=== PATIENT | female | born 1960 | race Caucasian/White ===

== ENCOUNTER 2016-12-27 07:22 | Day surgery (SDC) | payer BC ==
[~2016-12-27] VITALS: Ht 156.2 cm; Wt 58.9 kg
[~2016-12-27 07:22] MED LIST: ESTR1PAT45 TD; IBUP-1724 PO; LIDOCAINE 1% (10mg/ml) 2ml SDV INJ ONE; LR 1,000 ML IV SCH
--- OUTSIDE RECORDS SUMMARY | 2016-12-27 07:26 | XMS REPORT | Continuity of Care Document ---
Author Author [facility] Organization [facility] Address Unknown Phone Unavailable Support Name Relationship Address Phone MANGO HOBSON MD Caregiver [address] [place] [address] Unavailable INFECTION, CONTROL Caregiver [address] [place] [address] Unavailable EYAL ANGEL Next Of Kin [address] [place] [address] Insurance Providers Guarantor Aaron Angel Address [address] [place] [phone] Email [email or web address] Payer Channel [employer] Federal Policy Number [id number] Subscriber's Name Eyal Angel Relationship 01 Spouse Group Number [id number] Advance Directives Directive Response Recorded Date/Time Ordered Resuscitation Status Full Code 03/29/14 11:36am Problems Past Problems Medical Problem Onset Date 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 Unknown Medications Current Home Medications Medication Dose Units Route Directions Days Qty Instructions Start Date Estradiol (Vivelle-Dot 0.1 Mg) 1 Patch.bwk Patch.tdsw 1 Patch.bwk Transderm Twice A Week 07/02/12 Ibuprofen 200 Mg Tablet 2 Tab Oral Every 4 Hours as needed for Pain 07/24/16 Social History Social History Problem Response Recorded Date/Time Onset Date Status Chewing Tobacco Status No 03/28/2014 11:00am Not Applicable Not Applicable Hx Substance Use No 03/28/2014 11:00am Not Applicable Not Applicable Hx Alcohol Use No 03/28/2014 11:00am Not Applicable Not Applicable Has the pt used tobacco in the last 12 months No 03/28/2014 11:00am Not Applicable Not Applicable Query Response Start Date Stop Date Smoking Status Former smoker Hospital Discharge Instructions Current inpatient/outpatient. Discharge instructions are currently unavailable. Plan of Care Current inpatient/outpatient. The plan of care is currently unavailable Functional Status No functional status results. Allergies, Adverse Reactions, Alerts Allergen Type Severity Reaction Status Last Updated hydrocodone bit Allergy Unknown HIVES AND ITCHING Active 03/29/14 Penicillin Allergy Unknown HIVES Active 03/29/14 Sulfa (Sulfonamide Antibiotics) Allergy Unknown Active 03/29/14 Codeine Allergy Unknown DELIRIUM Active 03/29/14 Banana Allergy Unknown LIPS TINGLE Active 03/29/14 Latex Allergy Unknown LATEX SENSITIVE - LIPS GET "TINGLY" Active 03/29/14 Kiwi Allergy Unknown LIPS TINGLE Active 03/29/14 Avocado Allergy Unknown LIPS TINGLE Active 03/29/14 Immunizations Query Response on File Recorded Date/Time Hx Influenza Vaccination Y 201203/28/14 11:00am Hx Pneumococcal Vaccination No 03/28/14 11:00am Hx Influenza Vaccination Y 201203/28/14 11:00am Vital Signs Acute Vital Signs Vital Response Date/Time Temperature (Fahrenheit) 97.8 deg F (96.8 - 99.1) 07/24/2016 1:58pm Temperature (Calculated Celsius) 36.33824 degrees C (36.0 - 37.3) 07/24/2016 1:58pm Pulse Rate (adult) 60 bpm (60 - 100) 07/24/2016 1:58pm Respiratory Rate 20 breaths/min (10 - 20) 07/24/2016 1:58pm O2 Sat by Pulse Oximetry 96 % (90 - 100) 07/24/2016 1:58pm Blood Pressure 128/80 mm Hg 07/24/2016 1:58pm Height (Feet) 5 feet 07/24/2016 1:20pm Height (Inches) 1.00 inches 07/24/2016 1:20pm Weight (Kilograms) 61.700 kg 07/24/2016 1:20pm Body Mass Index (BMI) 25.0 07/24/2016 1:20pm Results Laboratory Results Test Name Result Units Flags Reference Collection Date/Time Result Date/ Time Comments Alanine Aminotransferase (ALT/SGPT) 30 U/L 9-52 07/24/2016 3:14pm 07/24 3:32pm Procedures No known history of procedures. Encounters Encounter Location Arrival/Admit Date Discharge/Depart Date Attending Provider Registered Referred [facility] 07/24/16 1:27pm INFECTION, CONTROL Departed Emergency Room [facility] 07/24/16 1:18pm 07/24/16 1: 58pm WARREN POON DO
--- OUTSIDE RECORDS SUMMARY | 2016-12-27 07:26 | XMS REPORT | Continuity of Care Document ---
Author Author [facility] Organization [facility] Address Unknown Phone Unavailable Allergies Active Description Code Type Severity Reaction Onset Reported/Identified Relationship to Patient Clinical Status Yes Banana Miscellaneous Allergy N/A hives, swelling /hives, swelling 06/17/2013 Yes codeine Drug Allergy N/A HIVES 06/17/2013 Yes kiwi Miscellaneous Allergy N/A hives, swelling /hives, swelling 06/17/2013 Yes latex Drug Allergy N/A latex sensitive-hives, swelling 06/17/2013 Yes No Known Food Allergies Food Allergy N/A N/A 06/17/2013 Yes Penicillins Drug Allergy N/A HIVES 06/17/2013 Yes Lortab Drug Allergy N/A nausea vomiting 06/22/2013 Medications Problems Date Dx Coded Attending Type Code Diagnosis Diagnosed By 06/17/2013 Jose Guy MD Final 278.01 MORBID OBESITY 06/17/2013 Jose Guy MD Final V72.63 PRE-PX LABORATORY EXAM 06/22/2013 Jose Guy MD Final 278.01 MORBID OBESITY 06/22/2013 Jose Guy MD Final 285.1 ACUTE POSTHEMOR ANEMIA 06/22/2013 Jose Guy MD Final 553.3 DIAPHRAGMATIC HERNIA 06/22/2013 Jose Guy MD Final V85.37 BMI 37.0-37.9 ADULT Procedures Code Description Performed By Performed On 43.82 Jose Guy MD 06/22/2013 45.13 SM BOWEL ENDOSCOPY NEC Jose Guy MD 06/22/2013 53.71 LAPSCP DH REP ABD APPR Jose Guy MD 06/22/2013 Results Encounters ACCT No. Visit Date/Time Discharge Status Pt. Type Provider Facility Loc./Unit Complaint [id number] 06/22/2013 07:51:00 2012 15:45:00 DIS Inpatient Jose Guy MD [facility] F8SE [id number] 06/17/2013 14:52:00 2012 23:59:59 CLS Outpatient Brooks ARREOLA, Jose Browne [facility] on [facility]
--- OUTSIDE RECORDS SUMMARY | 2016-12-27 07:26 | XMS REPORT ---
Author Author [facility], [facility] - Organization Unknown Address Unknown Phone Unavailable Allergies, Adverse Reactions, Alerts * Lortab causes nausea & vomiting and nausea. * latex causes latex sensitive-hives,swelling. * kiwi (as Food allergen) causes hives, swelling. * kiwi causes hives, swelling. * Banana (as Food allergen) causes hives, swelling. * Banana causes hives, swelling. * codeine causes HIVES. * Penicillins causes HIVES. * No IV Contrast Allergy. Problems * Altered Bowel Function* Status:Active. * Morbid Obesity* Status:Active. * Pain* Status:Active. * Peripheral Tissue Perfusion Impairment* Status:Active. * Skin Integrity Impairment* Status:Active. Procedures No relevant procedures performed. Medication It is the responsibility of the patient or patient patient care representative to confirm the list of medications with either the patient's personal care provider or the patient's follow-up care provider to ensure the patient has an appropriate list of medications to take at home. Discharge medications* oxyCODONE 5 mg/5 mL Solution, Ordered By: Tracie Ortega Directions: 7.5 mL oral Q3H PRN _ * estradiol (Vivelle-Dot) 0.1 mg/24 hour Patch Semiweekly, Ordered By: Tracie Ortega Directions: 1 patch transdermal weekly * MULTI VITAIN HMR ONE TABLET ORAL TWICE A DAY LAST DOSE 06/20/13 * esomeprazole magnesium (NexIUM Packet) [address] for susp in Packet, Ordered By: Tracie Ortega Directions: 1 PO daily * ondansetron HCl (Zofran) 4 mg Tablet, Ordered By: Tracie Ortega Directions: 1 tablet oral every six hours PRN nausea or vomiting Stopped medications* acetaminophen (Tylenol) 325 mg Tablet Directions: 2 tablet oral daily PRN pain * calcium carbonate-vitamin D3 (Calcium+D) 500 mg calcium (1,250 mg)-200 unit Tablet Directions: 1 tablet oral daily Results LAB--BEDSIDE TESTING from 06/22/2013 8:09 AMGlucose NPT 74 mg/dL (70-100 mg/dL) LAB--BEDSIDE TESTING from 06/22/2013 6:44 PMGlucose NPT 184 mg/dL H (70-100 mg/ dL) LAB--BEDSIDE TESTING from 06/23/2013 1:27 AMGlucose NPT 204 mg/dL H (70-100 mg/ dL) LAB--BEDSIDE TESTING from 06/23/2013 6:59 AMGlucose NPT 189 mg/dL H (70-100 mg/ dL) LAB--BEDSIDE TESTING from 06/23/2013 11:57 AMGlucose NPT 198 mg/dL H (70-100 mg/ dL) LAB--BEDSIDE TESTING from 06/23/2013 6:13 PMGlucose NPT 159 mg/dL H (70-100 mg/ dL) LAB--BEDSIDE TESTING from 06/24/2013 12:22 AMGlucose NPT 126 mg/dL H (70-100 mg/ dL) LAB--BEDSIDE TESTING from 06/24/2013 5:46 AMGlucose NPT 128 mg/dL H (70-100 mg/ dL) LAB--BEDSIDE TESTING from 06/24/2013 11:51 AMGlucose NPT 97 mg/dL (70-100 mg/dL) LAB--BLOOD BANK from 06/22/2013 8:33 AMABO and Rh O POS Antibody Screen (Indirect [place]) NEG LAB--CHEMISTRY from 06/23/2013 6:01 AMAnion Gap 6 (3-20 ) BUN 9 mg/dL (4-20 mg/dL) Calcium 8.4 mg/dL L (8.6-10.0 mg/dL) Chloride 107 mEq/L (99-109 mEq/L) CO2 20 mEq/L L (22-32 mEq/L) Creatinine 0.75 mg/dL (0.44-1.03 mg/dL) eGFR >60 (>60- ) Glucose 204 mg/dL H (70-100 mg/dL) Potassium 5.1 mEq/L (3.6-5.1 mEq/L) Sodium 133 mEq/L L (136-144 mEq/L) LAB--CHEMISTRY from 06/24/2013 5:47 AMAnion Gap 3 (3-20 ) BUN 2 mg/dL L (4-20 mg/dL) Calcium 8.2 mg/dL L (8.6-10.0 mg/dL) Chloride 110 mEq/L H (99-109 mEq/L) CO2 24 mEq/L (22-32 mEq/L) Creatinine 0.64 mg/dL (0.44-1.03 mg/dL) eGFR >60 (>60- ) Glucose 126 mg/dL H (70-100 mg/dL) Potassium 4.2 mEq/L (3.6-5.1 mEq/L) Sodium 137 mEq/L (136-144 mEq/L) LAB--HEMATOLOGY from 06/22/2013 9:14 PMHGB 11.2 g/dl L (12.0-16.0 g/dl) LAB--HEMATOLOGY from 06/23/2013 6:01 AMHCT 28.8 % L (37.0-47.0 %) HGB 10.2 g/dl L (12.0-16.0 g/dl) MCH 31.2 pg (27.0-32.0 pg) MCHC 35.4 g/dL (32.0-36.0 g/dL) MCV 88.1 fL (82.0-99.0 fL) MPV 11.4 fL (9.4-12.4 fL) Platelet Count 220 K/uL (150-400 K/uL) RBC 3.27 M/uL L (4.00-5.20 M/uL) RDW 11.7 % (11.5-14.5 %) WBC 12.2 K/uL H (4.8-10.8 K/uL) LAB--HEMATOLOGY from 06/23/2013 2:50 PMHGB 9.6 g/dl L (12.0-16.0 g/dl) LAB--HEMATOLOGY from 06/24/2013 5:47 AMHCT 22.4 % L (37.0-47.0 %) HGB 7.7 g/dl L (12.0-16.0 g/dl) MCH 30.6 pg (27.0-32.0 pg) MCHC 34.4 g/dL (32.0-36.0 g/dL) MCV 88.9 fL (82.0-99.0 fL) MPV 10.6 fL (9.4-12.4 fL) Platelet Count 161 K/uL (150-400 K/uL) RBC 2.52 M/uL L (4.00-5.20 M/uL) RDW 12.2 % (11.5-14.5 %) WBC 7.8 K/uL (4.8-10.8 K/uL) LAB--HEMATOLOGY from 06/24/2013 11:50 AMHGB 8.6 g/dl L (12.0-16.0 g/dl)
--- OUTSIDE RECORDS SUMMARY | 2016-12-27 07:26 | XMS REPORT | Continuity of Care Document ---
Author Author [facility] Organization [facility] Address Unknown Phone Unavailable Support Name Relationship Address Phone ELVIS HERNANDEZ MD Caregiver [facility] PLASTIC SURGERY [address] [place] [address] , [address] [place] [phone] TESSIE ESTEVES MD Caregiver [address] [place] [address] [place] [address] [phone] SONALI ANGEL Next Of Kin [address] [place] [address] Insurance Providers Payer Name Policy Number Subscriber Name Relationship Self Pay Aaron Angel 17 Self Advance Directives Directive Response Recorded Date/Time Ordered Resuscitation Status Full Code 03/29/14 11:36am Problems No known problems or medical conditions. Medications Medication Dose Route Sig Days/Qty Instructions Order Date Discontinued Date Status Estradiol 1 Patch.bwk TD TWICE A WEEK 07/02/12 Active Calcium Citrate/Vitamin D2 1 Each PO DAILY 03/28/14 Active Multivit, Iron, Min #7, Fa 2 Tab.chew PO TWICE A DAY 03/28/14 Active Acetaminophen/Dp-Hydram Hcl 1 Tab PO HS PRN 03/28/14 Active Social History Social History Problem Response Recorded Date/Time Smoking Status Former smoker 03/28/2014 11:00am Chewing Tobacco Status No 03/28/2014 11:00am Hx Substance Use No 03/28/2014 11:00am Hx Alcohol Use No 03/28/2014 11:00am Has the pt used tobacco in the last 12 months No 03/28/2014 11:00am Query Response Start Date Stop Date Smoking Status Former smoker Hospital Discharge Instructions No hospital discharge instructions. Plan of Care No plan of care. Functional Status No functional status results. Allergies, [...] Allergy Unknown LIPS TINGLE Active 03/29/14 Immunizations Name Given Type Hx Influenza Vaccination Y 2013 Historical Hx Pneumococcal Vaccination No Historical Hx Influenza Vaccination Y 2012 Historical Vital Signs Acute Vital Signs Vital Response Date/Time Temperature (Fahrenheit) 98.7 deg F (96.8 - 99.1) Temperature (Calculated Celsius) 37.23753 degrees C (36.0 - 37.3) Temperature Source Temporal Pulse Rate (adult) 59 bpm (60 - 100) Respiratory Rate 16 breaths/min (10 - 20) O2 Sat by Pulse Oximetry 94 % (90 - 100) Blood Pressure 99/50 mm Hg Blood Pressure Source Automatic Cuff Height 5 ft 1.5 in Weight 132 lb Body Mass Index 24.0 kg/m^2 Results Test Source Date Result Interp. Ref. Range Comments Alanine Aminotransferase (ALT/SGPT) June 30, 2012 10:24am 35 U/L N 9- 52 Albumin June 30, 2012 10:24am 4.2 G/DL N 3.5-5.0 Albumin/Globulin Ratio June 30, 2012 10:24am 1.2 RATIO N 1.1-2.2 Alkaline Phosphatase June 30, 2012 10:24am 91 U/L N 38-126 Anion Gap June 30, 2012 10:24am 9 MEQ/L N 5-15 Aspartate Amino Transf (AST/SGOT) June 30, 2012 10:24am 28 U/L N 14- 36 BUN/Creatinine Ratio June 30, 2012 10:24am 21 RATIO N 6-26 Basophils # (Auto) June 30, 2012 10:24am 0.1 T/MM3 N 0-0.2 Basophils (%) (Auto) June 30, 2012 10:24am 1.2 % N 0-2 Blood Urea Nitrogen June 30, 2012 10:24am 15.0 MG/DL N 7-17 Calcium Level June 30, 2012 10:24am 9.8 MG/DL N 8.4-10.2 Calculated Osmolality June 30, 2012 10:24am 271 MOSM/KG N 261-280 Carbon Dioxide Level June 30, 2012 10:24am 27 MEQ/L N 22-30 Chloride Level June 30, 2012 10:24am 105 MEQ/L N 98-107 Creatinine June 30, 2012 10:24am 0.7 MG/DL N 0.7-1.2 Eosinophils # (Auto) June 30, 2012 10:24am 0.1 T/MM3 N 0-0.5 Eosinophils (%) (Auto) June 30, 2012 10:24am 2.5 % N 0-4 Erythrocyte Sedimentation Rate March 15, 2010 9:14am 5 MM/HR N 0-20 Globulin June 30, 2012 10:24am 3.4 G/DL N 2.4-3.6 Glucose Level June 30, 2012 10:24am 84 MG/DL N 65-110 Hematocrit June 30, 2012 10:24am 41.8 % N 36-46 Hemoglobin June 30, 2012 10:24am 13.9 GM/DL N 12-16 Lymphocytes # (Auto) June 30, 2012 10:24am 1.8 T/MM3 N 1-4.8 Lymphocytes (%) (Auto) June 30, 2012 10:24am 36.4 % N 23-45 Mean Corpuscular Hemoglobin June 30, 2012 10:24am 30.3 UUG N 26-34 Mean Corpuscular Hemoglobin Concent June 30, 2012 10:24am 33.3 GM/DL N 31-37 Mean Corpuscular Volume June 30, 2012 10:24am 91.1 UM3 N 80-100 Mean Platelet Volume June 30, 2012 10:24am 10.8 UM3 N 9.4-12.4 Monocytes # (Auto) June 30, 2012 10:24am 0.4 T/MM3 N 0-0.8 Monocytes (%) (Auto) June 30, 2012 10:24am 7.6 % N 0-9.0 Neutrophils # (Auto) June 30, 2012 10:24am 2.5 T/MM3 N 1.8-7.7 Neutrophils (%) (Auto) June 30, 2012 10:24am 52.3 % N 33-66 Platelet Count June 30, 2012 10:24am 211 T/MM3 N 130-400 Potassium Level June 30, 2012 10:24am 4.4 MEQ/L N 3.6-5 RDW Standard Deviation June 30, 2012 10:24am 38.3 FL N 36.9-50.2 Red Blood Count June 30, 2012 10:24am 4.59 M/MM3 N 4.00-5.20 Sodium Level June 30, 2012 10:24am 141 MEQ/L N 134-144 Total Bilirubin June 30, 2012 10:24am 0.50 MG/DL N 0.20-1.30 Total Protein June 30, 2012 10:24am 7.6 G/DL N 6.3-8.2 Urine Bilirubin June 30, 2012 10:24am Negative - Urine Blood June 30, 2012 10:24am Negative - Urine Collection Type June 30, 2012 10:24am Voided - Urine Color June 30, 2012 10:24am Yellow - Urine Glucose (UA) June 30, 2012 10:24am Negative - Urine Ketones June 30, 2012 10:24am Negative - Urine Leukocyte Esterase June 30, 2012 10:24am Negative - Urine Nitrite June 30, 2012 10:24am Negative - Urine Protein June 30, 2012 10:24am Negative - Urine Specific Odell June 30, 2012 10:24am 1.010 L - Urine Turbidity June 30, 2012 10:24am Clear - Urine Urobilinogen June 30, 2012 10:24am Normal EU/DL - Urine pH June 30, 2012 10:24am 6.0 - White Blood Count June 30, 2012 10:24am 4.8 T/MM3 N 4.5-11.0 Lab Scanned Report June 30, 2012 10:53am LAB TEST FORM REQUEST [id number] - Glomerular Filtration Rate Calc June 30, 2012 10:24am 88 - Immature Granulocyte # (Auto) June 30, 2012 10:24am 0.00 T/MM3 N 0.00 -0.03 Immature Granulocyte % (Auto) June 30, 2012 10:24am 0.0 % N 0.0-0.5 Urine Microscopic Not Indicated June 30, 2012 10:24am Not indicated - Procedures Procedure Status Date Provider(s) Augmentation mammoplasty completed 03/30/14 ELVIS HERNANDEZ MD
[2016-12-27 07:52] VITALS: Ht 156.2 cm; Wt 58.9 kg
[2016-12-27 07:53] VITALS: BP 108/78; PULSE 97; RESP 16; TEMP 98.1; O2SAT 95
--- NOTE | 2016-12-27 08:53 | ANESPREOP ---
Anesthesia Record Date and Time DATE: 12/27/16 TIME: 08:51 Pre-Op Diagnosis crcs Proposed Surgical Procedure COLONOSCOPY Allergies: Coded Allergies: Penicillins (Verified Allergy, Unknown, HIVES, 12/27/16) Sulfa (Sulfonamide Antibiotics) (Unverified Allergy, Unknown, 12/27/16) avocado (Verified Allergy, Unknown, LIPS TINGLE, 12/27/16) banana (Verified Allergy, Unknown, LIPS TINGLE, 12/27/16) codeine (Verified Allergy, Unknown, DELIRIUM, 12/27/16) hydrocodone bit (Verified Allergy, Unknown, HIVES AND ITCHING, 12/27/16) kiwi (Verified Allergy, Unknown, LIPS TINGLE, 12/27/16) latex (Verified Allergy, Unknown, LATEX SENSITIVE - LIPS GET "TINGLY", ) Ht/Wt/BMI Height: 5 ' 1.50 " Weight: 58.900 kg BMI: 24.1 kg/m2 Vital Signs Date Time Temp Pulse Resp B/P Pulse Ox O2 Delivery O2 Flow Rate FiO2 12/27/16 07:53 98.1 97 16 108/78 95 Room Air Medications Inpatient Medications Current Medications Medications (Trade) Dose Ordered Sig/Albert Start Time Stop Time Status Last Admin Dose Admin Lactated Ringer's (Lactated Ringers) 1,000 ml @ 30 mls/hr Q24H 12/27/16 07:00 12/27/16 08:26 30 MLS/HR Estradiol 0.1 Mg (Vivelle-Dot 0.1 Mg) 1 Patch.bwk Patch.tdsw, 1 PATCH.BWK TD TWICE A WEEK, (Reported) Last Taken: on 12/27/16 0700 Ibuprofen (Ibuprofen) 200 Mg Tablet, 2 TAB PO Q4H PRN for PAIN, (Reported) Last Taken: on Unknown Date & Time Currently on Beta Ashley: No Medical/Surgical History Anesthesia PMH: Reports: Anesthesia Reactions (NAUSEA VOMITING WITH GEN ANESTHESIA; LARYNGOSPASMS), Headaches, Hiatal Hernia (REPAIRED), Reflux ( RESOLVED), Denies: *Angina, *Diabetes, *Dyspnea, *Hypertension, *GA, Arthritis, Asthma, Blood Transfusion Reac, CHF, COPD, CVA/Stroke/TIA, Cancer, Clotting Problems, Deep Vein Thrombosis, Glaucoma, Hepatitis, Malignant Hyperthermia, Pneumonia, Renal Disease, Rheumatic Fever, Seizures, Sleep Apnea, Thyroid Disease, Tuberculosis Smoking Status: Never smoker Has pt. smoked today?: No Use Chewing Tobacco?: No Second Hand Exposure: No Substance Use Type: does not use Substance last used: unknown Alcohol Intake: rarely Last Drink: unknown HX of Last Menstrual Period: AGE 44 Past Surgical History Orthopedic Surgeries: Abdominal Surgeries: Yes - LAP APPY AND YOLANDA; LAP GASTRIC SLEEVE Genitourinary Surgeries: Yes - BIRCH REPAIR, LASER VAP, CYSTO, URETHRAL DIL Cardiac Surgeries: Endocrine Surgeries: Reproductive Surgeries: Yes - TATY/BSO, DIAGNOSIC LAPS X3 Neurological Surgeries: No Ear Surgeries: No Nose Surgeries: No Throat Surgeries: Yes - T&A Other Surgeries: Yes - COLONOSCOPY, EGD,BREAST AUG Anesthesia Adverse Reactions: FOUND nausea and vomiting Family Hx of Anesthesia Advers: none Hx of Motion Sickness: Yes Pertinent Findings EKG Rhythm: Sinus Rhythm Physical Exam Respiratory: Bilat breath sounds equal, Lungs clear Cardiovascular: FOUND Regular rate, rhythm, FOUND No murmur Airway Assessment Mallampati Score: I Overall Assessment: No Airway Concerns ASA: 1 Plan Anesthesia Plan: TIVA Discussion Discussed risks/options/alternatives of anesthesia and questions answered. Patient consents. Nursing pain assessment noted. Present: Spouse Attestation Statement Prior to the delivery of any anesthetic medication, I examined the patient, developed the plan, obtained the patient's consent and discussed the risk and benefits of the procedure with the patient/guardian. BHARGAV RICCI CRNA Dec 27, 2016 08:53
[2016-12-27] MEDS ORDERED: LIDOCAINE 1% (10mg/ml) 2ml SDV ONE (09:45)
[2016-12-27] MEDS ORDERED: ONDANSETRON 4mg/2ml INJECTION ONE (09:45)
[2016-12-27] MEDS ORDERED: PROPOFOL 500mg 50 ML IV ONE (09:45)
[2016-12-27] MEDS ORDERED: GLYCOPYRROLATE 0.4mg/2ml INJECTION ONE (10:09)
[2016-12-27 10:25] VITALS: BP 105/65; PULSE 83; RESP 12; TEMP 97.1; O2SAT 98
[2016-12-27 10:40] VITALS: BP 113/68; PULSE 76; RESP 18; O2SAT 98
[2016-12-27 10:55] VITALS: BP 123/76; PULSE 80; RESP 18; TEMP 97.2; O2SAT 97
--- NOTE | 2016-12-27 13:10 | ANESPO ---
Post-Op Note Date 12/27/16 Time: 13:09 Status Pt Participated in Evaluation: Pt participated in person Vital Signs Date Time Temp Pulse Resp B/P Pulse Ox O2 Delivery O2 Flow Rate FiO2 12/27/16 10:55 97.2 80 18 123/76 97 Room Air Respiratory Function: Airway patent, Regular respirations Cardiovascular Function: Regular pulse Mental Status: Alert/oriented Pain Level Intensity: 0 Unable to Assess Pain Due To: Medicated/Sleeping Hydration: Taking po fluids Complications during Recovery None apparent Post-Anesthesia Notes pt. rojas. well I saw her bebore she was dismissed Follow-Up Instructions Instructions Per Surgeon Additional Information none BHARGAV RICCI CRNA Dec 27, 2016 13:10
--- NOTE | 2016-12-27 15:13 | OPNOTEF ---
DATE OF SERVICE 12/27/2016 SURGEON Abner Romo MD PREOPERATIVE DIAGNOSIS Colorectal cancer surveillance. POSTOPERATIVE DIAGNOSIS Colorectal cancer surveillance, sigmoid diverticulosis. PROCEDURE Colonoscopy. ANESTHESIA TIVA BRIEF HISTORY/INDICATIONS Mrs. Angel is a 56-year-old female who presents today to [facility] to undergo a colonoscopy to serve as a portion of her overall colorectal cancer surveillance. For completeness please refer to notes included in the patient's chart. FINDINGS Upon colonoscopy there was no evidence for angiodysplastic lesions, polyps or dannie malignancies. The patient was found to have a moderate number of diverticula within the sigmoid colon region. NARRATIVE OF PROCEDURE After informed consent was obtained, the patient was brought to the endoscopy suite and placed on the table in the left lateral decubitus position. The patient subsequently underwent total intravenous anesthesia by the nurse wind turbine installer per my request. A formal timeout was then completed. Next, a digital rectal examination was performed. Normal sphincter tone. No rectal masses were appreciated. An Olympus colonoscope was inserted in the anus and advanced with the lumen of the colon under direct visualization at all times until the cecum was ascertained. Triangulation of the tenia coli, ileocecal valve and appendiceal lumen were all visualized. The scope was then slowly withdrawn, again maintaining visualization of the lumen at all times. As stated above, the entire colon was without evidence for angiodysplastic lesions, polyps or dannie malignancies. The patient was found to have a moderate number of diverticula within the sigmoid colon region. The scope continued to be withdrawn until it was brought forth back into the rectal vault. A J-maneuver was then performed. No worrisome perianal pathology was noted. The scope was allowed to straighten and was withdrawn through the anal verge. The patient tolerated the procedure without difficulty and was sent back to the preoperative area in stable condition. Secondary to the absence of findings upon this colonoscopy, the patient will not need to undergo a repeat colonoscopy until ten years from now unless new indications should arise. LOUANN
== END 2016-12-27 11:03 | disposition home or self-care (01) ==
LOC: NSC 07:22
PROVIDERS: ATTEND Surgery
DX: Z12.11 Encounter for screening for malignant neoplasm of colon (principal); K57.30 Diverticulosis of large intestine without perforation or abscess without bleeding; Z79.1 Long term (current) use of non-steroidal anti-inflammatories (NSAID); Z79.890 Hormone replacement therapy
CPT/HCPCS: 45378; J2405; J2704; J7120

== ENCOUNTER → 2017-01-10 | Outpatient (CLI) | payer BC ==
[~2017-01-10] MED LIST changes: -LIDOCAINE 1% (10mg/ml) 2ml SDV INJ ONE; -LR 1,000 ML IV SCH
== END ==
LOC: WC.BC 08:06
PROVIDERS: ATTEND Family Medicine
DX: Z12.31 Encounter for screening mammogram for malignant neoplasm of breast (principal); N64.89 Other specified disorders of breast; M85.88 Other specified disorders of bone density and structure, other site; Z82.69 Family history of other diseases of the musculoskeletal system and connective tissue; Z90.710 Acquired absence of both cervix and uterus; Z90.722 Acquired absence of ovaries, bilateral; Z98.82 Breast implant status; N91.2 Amenorrhea, unspecified
CPT/HCPCS: 77063; 77080; G0202